=== PATIENT | female | born 1985 | race Caucasian/White ===

== ENCOUNTER 2020-01-11 15:23 | Inpatient (IN) | payer OTHER ==
[~2020-01-11] VITALS: Ht 149.9 cm; Wt 76.7 kg
[~2020-01-11 15:23] MED LIST: ACYCLOVIR 400400 MG PO; ACYCLOVIR 800800 MG PO; ADALAT CC30 MG PO; BACTRIM DS TAB1 EACH PO; CIPRO500 MG PO; CIPROFLOXACIN500 M1 PO; FLOMAX PO; HIGH B/P MED; KEFLEX500 MG PO; LEVOTHROID; LEVOTHROID175 MCG; NORCO 5-325 TA1 EACH PO; PYRIDIUM200 MG PO; SYNTHROID; SYNTHROID125 MC1 PO; TRAMADOL 50 MG50 MG PO; ULTRAM 50MG TAB50 MG PO; ZOFRAN4 MG PO
[2020-01-11 15:27] VITALS: BP 154/105
[2020-01-11 15:58] LABS: URINE BILIRUBIN NEGATIVE (Negative); URINE BLOOD TRACE (Negative); URINE CLARITY SL CLOUDY; URINE COLOR YELLOW; URINE GLUCOSE-RANDOM* NEGATIVE (Negative); URINE KETONES NEGATIVE (Negative); URINE LEUKOCYTES-REFLEX NEGATIVE (Negative); URINE NITRITE-REFLEX NEGATIVE (Negative); URINE PROTEIN (DIPSTICK) NEGATIVE (Negative); URINE SPECIFIC GRAVITY 1.015 (1.005-1.035); URINE UROBILINOGEN 0.2 E.U./dl (0.2-1.0)
[2020-01-11 16:08] LABS: ABSOLUTE NEUTROPHILS 3.9 thou/uL (1.4-8.2); BASOPHILS 1.4 % (0.0-2.0); EOSINOPHILS 2.3 % (0.0-3.0); HEMOGLOBIN 12.3 gm/dL (12.0-15.0); LYMPHOCYTES 19.8 % (24.0-44.0); MCH 34.1 pg (26.0-34.0); MCHC 34.1 g/dL (28.0-37.0); MCV 100.1 fL (80.0-100.0); MONOCYTES 6.8 % (1.0-8.0); PLATELET COUNT 246 thou/uL (150-400); POLYS 69.7 % (36.0-66.0); RBC 3.59 mil/uL (4.20-5.00); RDW 16.9 % (10.5-14.5); WBC 5.6 thou/uL (4.0-11.0)
[2020-01-11 16:10] LABS: AMP/METHAMP POSITIVE (Negative); BARBITURATES Negative (Negative); BENZODIAZEPINES Negative (Negative); COCAINE Negative (Negative); METHADONE Negative (Negative); OPIATES Negative (Negative); PCP Negative (Negative)
[2020-01-11 16:54] LABS: ALBUMIN 3.9 g/dL (3.4-5.0); CALCIUM 10.7 mg/dL (8.5-10.1); CREATININE 1.8 mg/dL (0.6-1.0); POTASSIUM 3.8 mmol/L (3.5-5.1); TOTAL BILIRUBIN 0.4 mg/dL (<0.1-1.0); TOTAL PROTEIN 7.1 g/dL (6.4-8.2)
[2020-01-11 17:42] VITALS: BP 143/100
[2020-01-11 18:13] VITALS: BP 143/100
[2020-01-11 18:16] VITALS: BP 143/100
[2020-01-11 18:38] VITALS: BP 155/107
[2020-01-11 19:50] VITALS: BP 143/95
[2020-01-12 00:07] LABS: GLYCOHEMOGLOBIN (HGB A1C) 5.5 % (4.8-5.6)
--- NOTE | 2020-01-12 01:54 | NUR ---
PT TO UNIT AROUND 1914. ADMISSION ASSESSMENT COMPLETED. ORDERS INTIATED. PT REPORTS NO PAIN, JUST SOME NUMBNESS IN FEET DUE TO SWELLING. ALERT AND ORIENTED X 4. ORIETNED TO STAFF, UNIT AND USE OF CALL LIGHT. GIVEN A BOX LUNCH. PT HAS NO COMPLAINTS AT THIS TIME, HAS BEEN SLEEPING JUST ABOUT ALL EVENING.
[2020-01-12 04:15] VITALS: BP 134/86
[2020-01-12 06:01] LABS: ABSOLUTE NEUTROPHILS 2.2 thou/uL (1.4-8.2); BASOPHILS 1.4 % (0.0-2.0); EOSINOPHILS 3.1 % (0.0-3.0); HEMATOCRIT 36.7 % (37.0-47.0); HEMOGLOBIN 12.5 gm/dL (12.0-15.0); MCH 34.1 pg (26.0-34.0); MCV 100.3 fL (80.0-100.0); MONOCYTES 5.8 % (1.0-8.0); PLATELET COUNT 219 thou/uL (150-400); POLYS 54.7 % (36.0-66.0); RBC 3.66 mil/uL (4.20-5.00); RDW 16.5 % (10.5-14.5)
[2020-01-12 06:20] LABS: CALCIUM 10.8 mg/dL (8.5-10.1); CREATININE 1.8 mg/dL (0.6-1.0); MAGNESIUM 2.1 mg/dL (1.8-2.4); POTASSIUM 3.5 mmol/L (3.5-5.1); URIC ACID* 5.1 mg/dL (2.6-7.2)
[2020-01-12 06:26] LABS: CHOLESTEROL 347 mg/dL (<200); HDL CHOLESTEROL 48 mg/dL (>40); LDL CHOLESTEROL 262 mg/dL (<100); TC:HDL 7.2 Ratio (Not establshd); TRIGLYCERIDE 187 mg/dL (<150); VLDL 37 mg/dL (<40)
[2020-01-12 06:42] LABS: SERUM ASSESSMENT Clear
[2020-01-12 06:54] LABS: FOLIC ACID 4.4 ng/mL (8.6-58.9)
[2020-01-12 07:45] VITALS: BP 127/96
[2020-01-12 16:06] VITALS: BP 142/84
[2020-01-12 16:08] VITALS: BP 123/52
--- NOTE | 2020-01-12 17:07 | NUR ---
PT ASSESSED AT START OF SHIFT. DR. LOPEZAT IN TO TALK W/ PT RE LOW THYROID AND EXPLAINED IMPORTANCE OF CONTINUING HER MEDICATION. IV THYROID GIVEN PER ORDERS. PT AMBULATED THE HALLS W/ THERAPY THIS AM. ENC TO SIT UP IN THE CHAIR LATER. UP TO THE BR SEVERAL TIMES. NO BM. EATING FAIR.
[2020-01-12 21:00] VITALS: BP 144/99
--- NOTE | 2020-01-12 23:29 | NUR ---
1900 ASSUMED CARE OF PT AFTER BEDSIDE REPORT FROM [facility]NA. PT RESTING IN BED WITH NO S/SX OF DISTRESS AT THIS TIME AWAKENS SPONTANEOUSLY AND IS ALERT AND ORIENTED X 3. IV RINNING WITHOUT DIFFICULTY. 2100 BASELINE ASSESSMENT COMPLETED, PT WITH COMPLAINTS OF PAIN IN B FEET FROM SWELLING WILL GIVE PAIN MED PER NOV. PT IS UP AD CODY, AND HAS NO QUESTIONS OR COMPLAINTS AT THIS TIME, PT IS REFUSING SCDS, AND IS UP AD CODY. WILL CONTINUE TO MONITOR WITH HOURLY ROUNDING, PT WOULD LIKE TO BE ABLE TO SLEEP TONIGHT.
[2020-01-13 04:45] VITALS: BP 147/87
[2020-01-13 07:20] VITALS: BP 170/95
--- NOTE | 2020-01-13 12:35 | HC ---
[facility] [place] [address] CONSULTATION Name: LAWRENCE THOMAS Room #: 439-P ADM IN M.R.#: [id number] Admission: 01/11/20 Attend Phys: Ortega Clements MD Discharge: Date of : 83 Report #: [id number] THIS REPORT FOR: cc: Emilee Chavez Christine L. DO Al-Mubaslat, Ahmad MD ~ CC: Emilee Clements DATE OF SERVICE: 01/12/2020 CONSULTING PHYSICIAN: Dr. Caraballo. REASON FOR CONSULTATION: Uncontrolled severe hypothyroidism. HISTORY OF PRESENT ILLNESS: This is a 34-year-old female patient whose medical background is significant for the issue of hypothyroidism diagnosed at the age of 20 as well as a history of polysubstance abuse in the past. The patient indicates that her most recent levothyroxine dose was at 175 mcg daily, but that due to lack of health care coverage and inability to keep up with the cost of medical followup and laboratory testing, she has been essentially without any levothyroxine intake for about a year. During this year, she has had progressive issues with finger, hand, foot generalized swelling as well as tightness in pain. She also notes intermittent issues with peripheral numbness and tingling. She has been fatigued, tired and she reports weight gain as well as cold intolerance. She believes she had a syncopal episode at least once a few weeks ago. She did not appreciate neck fullness, pain, compressive symptoms or voice changes. It is noted that she had an admission in 2018 with a TSH of over 190 at that time. REVIEW OF SYSTEMS: CONSTITUTIONAL: Fatigue, tiredness, weight gain, cold intolerance, but not fever or chills. HEENT: Negative for sore throat, sinus pain, or ear drainage, but noted for periorbital puffiness and facial puffiness. PULMONARY: Occasional shortness of breath and cough, but not hemoptysis. CARDIAC: Negative for chest pain, palpitations, syncope, or presyncope. GASTROINTESTINAL: Negative for abdominal pain, but noted for occasional distention, nausea without vomiting. NEUROLOGY: Intermittent numbness, tingling, potential loss of consciousness a few weeks ago without seizure activity or severe frequent headaches. SKIN: Noted for generalized tightness, tension, pallor, but not rash, ulceration or other major abnormalities. Otherwise, review of systems noncontributory unless mentioned in HPI. [address] [address] CONSULTATION Name: LAWRENCE THOMAS Room #: 439-P ADM IN M.R.#: [id number] Admission: 01/11/20 Attend Phys: Ortega Clements MD Discharge: Date of : 83 Report #: [id number] PAST MEDICAL HISTORY: Noted for, 1. Hypothyroidism. 2. History of methamphetamine use. 3. History of marijuana use. 4. History of renal insufficiency. 5. Anemia. 6. Kidney stones. 7. History of preeclampsia. 8. History of urinary tract infection. OUTPATIENT MEDICATIONS: Levothyroxine 175 mcg daily, but not actively in use ALLERGIES: No known drug allergies. FAMILY HISTORY: Noncontributory. SOCIAL HISTORY: The patient works at [employer]. She smokes a half pack per day. Denies use of alcohol. PHYSICAL EXAMINATION: GENERAL: female patient who is not in apparent pain or distress. VITAL SIGNS: Blood pressure is 127/96 mmHg, heart rate is 57 beats per minute, respirations 16 per minute, and temperature 36.7 degrees Celsius. CONSTITUTIONAL: The patient is lying in bed, appears relatively comfortable, not in apparent distress. MUSCULOSKELETAL: Noted for periorbital puffiness and generalized facial puffiness, but without other major abnormalities. Extraocular motions are intact. Anicteric sclerae. NECK: Supple without JVD, carotid bruits and no thyromegaly. CHEST: Noted for good air entry bilaterally with scattered rales. No wheezes or crackles. HEART: Regular rate and rhythm without murmurs or gallops. ABDOMEN: Soft, lax. No guarding. Active bowel sounds. EXTREMITIES: Lower extremity exam is noted for +1 ankle edema bilaterally. She is tender to deep palpation. Pedal pulses are appreciated. NEUROLOGIC: Awake, alert and oriented to time, place and person. The remainder of her examination is nonfocal. PSYCH: Interactive. Normal thought process. Normal mood and affect. LABORATORY DATA: Sodium 137, potassium 3.5, chloride 100, CO2 of 29, anion gap 8, BUN 18, creatinine 1.8, her baseline in 2018 was 1.8 as well, glucose 103, AST 60, total bilirubin 0.4, lipase 289, calcium 10.8, magnesium 2.1, uric acid 5.1, alkaline phosphatase 64, ALT 40, total protein 7.1, albumin is 3.9, EGFR 32. Total CPK 1424. Troponin negative. Total cholesterol 347, triglycerides 187, HDL 48, and LDL 262. Free T4 0.2. White blood count 4.0, hemoglobin 12.5, [address] [address] CONSULTATION Name: LAWRENCE THOMAS Room #: 439-P ADM IN Herve.#: [id number] Admission: 01/11/20 Attend Phys: Ortega Clements MD Discharge: Date of : 83 Report #: [id number] hematocrit 36.7, and platelets 219. TSH 93.36. Hemoglobin A1c 5.5. ASSESSMENT AND PLAN: 1. Hypothyroidism. The patient presents with severe hypothyroidism and associated myxedema features. This is taking place in the setting of severe and complete noncompliance for the past year. The patient was counseled at length about the pathogenesis of hypothyroidism and the implications of uncontrolled and especially severe hypothyroidism. I made the point that this can be especially damaging in the setting of renal insufficiency, hypertension, and other medical issues. I counseled the patient about possible ways to maintain adequate followup and treatment in the absence of healthcare coverage including free clinics and pointed out that levothyroxine can be obtained in the generic form at a fairly low cost out of pocket. Given that the patient's cardiac background is rather healthy and unremarkable, I would like to adopt more aggressive thyroid hormone replacement therapy in the form of IV levothyroxine 150 mcg daily for the next 48 hours to 72 hours in order to boost her levels prior to resuming oral levothyroxine intake at a dose of 175 mcg daily. I strongly advised the patient to consider taking or maintaining a future followup especially in 6-8 weeks to ensure that this replacement strategies actually placing her in normal thyroid range which she seemed to understand well. 2. Hypercalcemia. The patient has mild hypercalcemia at 10.8 mg/dL. I will investigate this further with ionized calcium, PTH levels. This would be prudent to identify further, especially in the presence of active renal insufficiency and a history of kidney stones. Further workup and management will be based on these findings. 3. Hyperlipidemia. The patient has severe hyperlipidemia as marked by her LDL cholesterol of 262 mg/dL. 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 She would definitely benefit from statin therapy; however, her thyroid levels are to be well controlled prior to considering this as the odds of further myositis and hepatitis issues are induced by statins augmented under conditions of severe hypothyroidism. I certainly appreciate this consultation by Dr. Caraballo. <ELECTRONICALLY SIGNED> By: Ruchi Faria MD 01/13/20 1235 1328 1539 Ruchi Faria MD /nt
--- NOTE | 2020-01-13 15:17 | NUR ---
PT ASSESSED AT START OF SHIFT. SLEEPING MUCH OF THE TIME. FLAT AFFECT. UPSET RE ALL THE EDEMA ESPECIALLY FEET UNCOMFORTABLE. DR. BRANDT TALKED W/ PT AT LENGTH EXPAINING DISEASE PROCESS AND HOW RECOVERY WILL TAKE SOME TIME. ENC PT TO AMBULATE FOR SOME EXERCISE BUT SHE HAS NOT DONE SO THUS FAR.
[2020-01-13 15:53] VITALS: BP 125/89
[2020-01-13 17:03] LABS: CALCIUM 9.8 mg/dL (8.5-10.1); CREATININE 1.6 mg/dL (0.6-1.0); MAGNESIUM 1.8 mg/dL (1.8-2.4); PHOSPHORUS 2.5 mg/dL (2.5-4.9); POTASSIUM 3.9 mmol/L (3.5-5.1)
--- NOTE | 2020-01-13 17:08 | NUR ---
PT BLADDER SCANNED PVR 200 OUT, PVR 95
[2020-01-13 19:22] VITALS: BP 178/114
[2020-01-13 23:10] VITALS: BP 132/77
[2020-01-14 03:13] VITALS: BP 132/100
[2020-01-14 05:26] LABS: CREATININE 1.4 mg/dL (0.6-1.0); PHOSPHORUS 2.3 mg/dL (2.5-4.9)
[2020-01-14 05:40] LABS: CALCIUM 9.9 mg/dL (8.5-10.1); CREATININE 1.4 mg/dL (0.6-1.0); MAGNESIUM 1.8 mg/dL (1.8-2.4); PHOSPHORUS 2.1 mg/dL (2.5-4.9); POTASSIUM 3.5 mmol/L (3.5-5.1)
--- NOTE | 2020-01-14 05:40 | NUR ---
ASSUMED PT CARE AT 1900. PT COMPLAINS OF HEADACHE TONIGHT, TYLENOL PROVIDED LITTLE RELIEF. BP IS ELEVATED, GRIZZLYMAN NOTIFIED AND STARTED THE PT ON LISINPIRL DAILY WITH ORDERS TO GIVE TODAYS DOSE EARLY. FOLIC ACID IM INJECTIONS STARTED TONIGHT. FLUIDS INFUSING PER ORDER. UP TO TOILET MULTIPLE TIMES THROUGHOUT SHIFT. PITTING EDEMA THROUGHOUT ENTIRE BODY. PT THINKS SHE IS EXPERIENCING CAFFEINE WITHDRAWL. IN AND OUT OF SLEEP TONIGHT.
[2020-01-14 08:22] VITALS: BP 172/131
--- NOTE | 2020-01-14 08:54 | EKG ---
[facility] [place] [address] ELECTROCARDIOGRAM REPORT Name: LAWRENCE THOMAS Room #: 439-P ADM IN M.R.#: [id number] Admission: 01/11/20 Attend Phys: Ortega Clements MD Discharge: Date of : 83 Report #: [id number] THIS REPORT FOR: cc: Emilee Chavez Christine L. DO Lundgren, Craig H. MD [facility] ~ THIS REPORT FOR: //name// [facility] ED Test Date: 2020-01-11 Test Time: 16:10:04 Pat Name: LAWRENCE THOMAS Department: Room: 439 Gender: F Ergonomics Technician: KRANTHI : 1985 Requested By: Hao Merritt Order Number: [id number] MD: Ruben Aden Measurements Intervals [place] Rate: 61 P: 71 [place]: 194 QRS: 88 QRSD: 89 T: QT: 689 QTc: 695 Interpretive Statements Sinus rhythm Poor R wave progression Nonspecific T wave abnormality Prolonged QT interval Compared to ECG 05/29/2018 04:02:08 Prolonged QT interval now present Electronically Signed On 01-14-2020 8:52:57 CDT by Ruben Aden [email or web address] <ELECTRONICALLY SIGNED> By: Ruben Aden MD, [facility] 01/14/20 0852 1610 1610 Ruben Aden MD, [facility] /EPI
--- NOTE | 2020-01-14 09:02 | EKG ---
[facility] [place] [address] ELECTROCARDIOGRAM REPORT Name: LAWRENCE THOMAS Room #: 439-P ADM IN M.R.#: [id number] Admission: 01/11/20 Attend Phys: Ortega Clements MD Discharge: Date of : 83 Report #: [id number] THIS REPORT FOR: cc: Emilee Chavez,Doc Zaragoza MD ~ THIS REPORT FOR: //name// [facility] Test Date: 2020-01-14 Test Time: 08:47:09 Pat Name: LAWRENCE THOMAS Department: Room: 439 P Gender: F Machine Former: TELLY : 1985 Requested By: Collette Caraballo Order Number: [id number] MD: Doc Umana Measurements Intervals [place] Rate: 50 P: 86 [place]: 192 QRS: 101 QRSD: 102 T: -60 QT: 387 QTc: 353 Interpretive Statements Sinus rhythm Borderline right axis deviation Abnormal lateral Q waves Borderline T abnormalities, inferior leads Compared to ECG 05/29/2018 04:02:08 Electronically Signed On 01-14-2020 9:00:45 CDT by Doc Umana [email or web address] <ELECTRONICALLY SIGNED> By: Doc Umana MD 01/14/20899 6 6 Doc Umana MD /EPI
--- NOTE | 2020-01-14 15:09 | 2DMMODE ---
[facility] [place] [address] 2 D/M-MODE ECHOCARDIOGRAM Name: LAWRENCE THOMAS [facility] Room #: 439-P ADM IN M.R.#: [id number] Admission: 01/11/20 Attend Phys: Ortega Clements MD Discharge: Date of : 83 Report #: [id number] THIS REPORT FOR: cc: Emilee Chavez,Ruben Peter MD [facility] ~ APPROVED REPORT Study performed: 01/14/2020 13:30:35 EXAM: Comprehensive 2D, Doppler, and color-flow Echocardiogram Patient Location: Bedside Room #: 439 Status: routine BSA: 1.72 HR: 71 bpm BP: 172/131 mmHg Rhythm: NSR Other Information Study Quality: Adequate Indications Hypertension/HDD 2D Dimensions RVDd: 27.24 mm IVSd: 13.09 (7-11mm) LVOT Diam: 19.65 (18-24mm) LVDd: 34.79 mm PWd: 14.18 (7-11mm) Ascending Ao: 30.86 (22-36mm) LVDs: 24.39 (25-40mm) Aortic Root: 27.40 mm IVC: 11.00 mm Volumes Left Atrial Volume (Systole) Single Plane 4CH: 35.36 mL Single Plane 2CH: 38.34 mL LA ESV Index: 23.00 mL/m2 Aortic Valve AoV Peak Dante.: 1.31 m/s AO Peak Gr.: 6.82 mmHg LVOT Max P.48 mmHg LVOT Max V: 1.06 m/s YAN Vmax: 2.46 cm2 [facility] [address] [place] [address] 2 D/M-MODE ECHOCARDIOGRAM Name: LAWRENCE THOMAS [facility] Room #: 439-P [facility] IN .R.#: [id number] Admission: 01/11/20 Attend Phys: Ortega Clements MD Discharge: Date of : 83 Report #: [id number] Mitral Valve E/A Ratio: 1.7 MV Decel. Time: 158.40 ms MV E Max Dante.: 0.71 m/s MV A Dante.: 0.43 m/s MV PHT: 45.94 ms IVRT: 124.57 ms Pulmonary Valve PV Peak Dante.: 0.99 m/s PV Peak Gr.: 3.94 mmHg Pulmonary Vein P Vein S: 0.49 m/s P Vein A: 0.17 m/s P Vein D: 0.47 m/s P Vein A Dur.: 124.6 msec P Vein S/D Ratio: 1.04 Tricuspid Valve RAP Estimate: 5.00 mmHg Left Ventricle The left ventricle is normal size. There is normal LV segmental wall motion. Mild concentric left ventricular hypertrophy. The left ventricular systolic function is normal. The left ventricular ejection fraction is within the normal range. LVEF is 60-65%. The left ventricular diastolic function is normal. Right Ventricle The right ventricle is normal size. The right ventricular systolic function is normal. Atria The left atrium size is normal. The right atrium size is normal. Aortic Valve The aortic valve is normal in structure. Trace aortic regurgitation. There is no aortic valvular stenosis. Mitral Valve The mitral valve is normal in structure. There is no mitral valve regurgitation noted. No evidence of mitral valve stenosis. Tricuspid Valve The tricuspid valve is normal in structure. There is no tricuspid valve regurgitation noted. Unable to assess PA pressure. [facility] [address] [place] [address] 2 D/M-MODE ECHOCARDIOGRAM Name: LAWRENCE THOMAS [facility] Room #: 439-P ADM IN M.R.#: [id number] Admission: 01/11/20 Attend Phys: Ortega Clements MD Discharge: Date of : 83 Report #: [id number] Pulmonic Valve The pulmonary valve is normal in structure. Trace pulmonic regurgitation. Great Vessels The aortic root is normal in size. IVC is normal in size and collapses >50% with inspiration. Pericardium There is no pericardial effusion. <Conclusion> The left ventricular systolic function is normal. There is normal LV segmental wall motion. Mild concentric left ventricular hypertrophy. LVEF is 60-65%. Normal diastolic function Structural valvular disease was absent. No significant regurgitant or stenotic lesions. Unable to assess PA pressure. There is no pericardial effusion. <ELECTRONICALLY SIGNED> By: Ruben Aden MD, [facility] 01/14/20 1507 1507 150 Ruben Aden MD, FAC /INF
[2020-01-14 16:44] VITALS: BP 146/105
--- NOTE | 2020-01-14 18:44 | NUR ---
ASSUMED CARE OF THE PT AT 0700. PT C/O OF HEADACHE, PAIN MEDS GIVEN, SEE EMAR. ULTRASOUND DONE IN THE AM. DOCTOR SAID IT WAS OKAY FOR PT TO HAVE A SODA TODAY. L AC DRY AND INTACT. PT IS NOT A FALL RISK, IS UP AD CODY. PT DOES NOT WANT TO BE AWAKENED FOR REPORT. BED IN LOWEST POSITION AND CALL LIGHT IS WITHIN REACH. WILL CONTINUE TO MONITOR THE PT.
[2020-01-14 20:02] VITALS: BP 130/86
--- NOTE | 2020-01-15 03:04 | NUR ---
care assumed at [id number].patient aox4 makes needs known. patient denied pain or discomfort. patient was calm and cooperative with meds and care. patient had a flat affect, poor eye contact, good grooming and hygiene. patient had +1 generalized edema. patient educated to elevate ble and bue. patient in bed asleep at this time breathing regular and unlaboured.
[2020-01-15 05:40] LABS: HEMATOCRIT 35.5 % (37.0-47.0); HEMOGLOBIN 11.9 gm/dL (12.0-15.0); MCHC 33.5 g/dL (28.0-37.0); MCV 101.4 fL (80.0-100.0); RBC 3.5 mil/uL (4.20-5.00); RDW 16.1 % (10.5-14.5); WBC 4.5 thou/uL (4.0-11.0)
[2020-01-15 05:52] LABS: CALCIUM 9.9 mg/dL (8.5-10.1); CREATININE 1.4 mg/dL (0.6-1.0); POTASSIUM 3.7 mmol/L (3.5-5.1)
[2020-01-15 07:39] VITALS: BP 149/100
--- NOTE | 2020-01-15 10:32 | NUR ---
PT ADMITTED RELATED TO BODY SWELLING. CM REVIEWED CHART AND SPOKE WITH CARE TEAM. CM CALLED AND SPOKE WITH PT AT BEDSIDE THIS DAY. PT APPEARED TO BE A&O X4. CM ROLE INTRODUCED. PT INDICATED SHE LIVES IN A HOUSE WITH HER MOTHER AND AUNT. PT INDICATED NO STEPS TO ENTER AND 14 STEPS TO HER BASEMENT BEDROOM. PT INDICATED SHE HAD BEEN INDEPDENENT WITH GAIT AND ADLS ROLL ICER MACHINE. PT INDICATED HER PCP IS DR. ABDOUL BLAS. PT INIDCATED SHE WORKS AT [employer] BUT THAT SHE DOESN'T HAVE INSURANCE THROUGH HER EMPLOYER. PT INIDCTED SHE PLANS TO RETURN HOME ONCE MEDICALLY STABLE. PT INDICATED SHE ANTICIPATES THAT SHE WILL BE ABLE TO FILL ANY PERSCRIPTIONS SHE MIGHT HAVE UPON DC. CM TO FOLLOW INDICATED WITH DC PLANNING.
[2020-01-15] MEDS ORDERED: LISINOPRIL10 MG PO (12:34)
[2020-01-15] MEDS ORDERED: SYNTHROID175 MCG PO (12:35)
[2020-01-15 13:07] VITALS: BP 149/100
--- NOTE | 2020-01-15 13:34 | NUR ---
Assumed care of pt at 0700. Pt a&ox4. Denies pain. IVF infusing. Up ad ailyn. Discharging to home. Prescriptions sent to pharmacy.
== END 2020-01-15 13:15 | disposition home or self-care (01) | DRG 683 ==
LOC: ER 15:23 → 4S 17:18 → EROBS 17:18 → 4S 18:53
PROVIDERS: Emergency Medicine; Hospitalist; Internal Medicine; Nurse Practitioner; ADMIT Internal Medicine
DX: N17.9 Acute kidney failure, unspecified (principal); M62.82 Rhabdomyolysis; E03.9 Hypothyroidism, unspecified; N18.9 Chronic kidney disease, unspecified; G62.9 Polyneuropathy, unspecified; F19.10 Other psychoactive substance abuse, uncomplicated; I12.9 Hypertensive chronic kidney disease with stage 1 through stage 4 chronic kidney disease, or unspecified chronic kidney disease; F32.9 Major depressive disorder, single episode, unspecified; E83.52 Hypercalcemia; Z91.19 Patient's noncompliance with other medical treatment and regimen; Z87.442 Personal history of urinary calculi; Z83.6 Family history of other diseases of the respiratory system
CPT/HCPCS: 10195